=== PATIENT | female | born 1960 | race Caucasian/White ===

== ENCOUNTER 2016-02-26 08:51 | Emergency (ER) | payer SELFPAY ==
[~2016-02-26] VITALS: Ht 162.6 cm; Wt 90.7 kg
[~2016-02-26 08:51] MED LIST: ACHD5005 PO; AZIT250T PO; AZIT500T PO; DEXT1TAB3 PO; ESCI20TA2 PO; GUAI600T59 PO; HYOS0.1216 PO; LVT.1T PO; METH4TAB PO; METO25TA2 PO; MTF500T PO; ONDA-42 SL; OXYC-12 PO; OXYC-272 PO; PRD10T PO; PRD20T PO; PRX10T PO; RT-ALBUINH IH; SUCR1TAB PO; VALS1TAB4 PO
--- OUTSIDE RECORDS SUMMARY | 2016-02-26 08:57 | XMS REPORT | Continuity of Care Document ---
Author Author [facility] Organization [facility] Address Unknown Phone Unavailable Care Team Providers Care Field Marketing Representative Name Role Phone MANUEL CLAY MD PCP Insurance Providers Payer Name Policy Number Subscriber Name Relationship Enter Insurance Name [id number] Patt Interiano Self / Same As Patient Advance Directives Directive Response Recorded Date/Time Advance Directives No 03/24/14 11:01am Health Care Power of Clay Burner No 03/24/14 11:01am Organ Donor Yes 03/24/14 11:01am Resuscitation Status Full Code 03/24/14 11:01am Problems Medical Problems Problem Onset Date Status Sciatica Unknown Active Sciatica Unknown Active Diarrhea Unknown Active Nausea and vomiting Unknown Active Diarrhea Unknown Active Medications Medication Dose Route Sig Days/Qty Instructions Order Date Discontinued Date Status Escitalopram Oxalate 1 Each PO DAILY 04/02/10 01/28/11 Discontinued HCTZ/Valsartan 1 Each PO DAILY 04/02/10 01/28/11 Discontinued Metformin HCl (Glucophage) 1 Each PO TWICE A DAY WITH MEALS 04/02/10 06/05/13 Discontinued Levothyroxine Sodium (Levothroid) 2 Each PO DAILY 04/02/10 Active Metoprolol Tartrate (Lopressor) 1 Tab PO DAILY 01/28/11 Active Azithromycin 500 Mg PO DAILY 03/26/11 06/05/13 Discontinued Prednisone 20 Mg PO TWICE A DAY 03/26/11 03/26/11 Discontinued Prednisone 10 Mg PO DAILY 03/26/11 03/26/11 Discontinued Prednisone 10 Mg PO DAILY 03/26/11 03/26/11 Discontinued Prednisone 10 Mg PO TWICE A DAY 03/26/11 06/05/13 Discontinued Oxycodone Hcl/Acetaminophen 1-2 Each PO EVERY 6 HOURS PRN PAIN 24 Qty 06/05/13 02/07/14 Discontinued Acetaminophen/Hydrocodone Bitart 1 Each PO EVERY 6 HOURS For PAIN 0 Qty 06/06/13 02/07/14 Discontinued Paroxetine HCl 1 Tab PO DAILY 30 Qty 06/06/13 Active Oxycodone Hcl/Acetaminophen 1 Tab PO EVERY 4HRS PRN PAIN 60 Qty 02/07/14 Discontinued Oxycodone Hcl/Acetaminophen 1-2 Each PO Q4-6H PRN 20 Qty 02/07/1408/29 Discontinued Methylprednisolone 1 Pkt PO DIRECTED 1 Qty 02/07/14 03/24/14 Discontinued Hyoscyamine Sulfate 1-2 Each PO Q4HR PRN PRN CRAMPS 10 Qty 03/24/14 Active Ondansetron Hcl 4 Mg SL EVERY 4HRS 10 Qty FOR NAUSEA AND VOMITING Active Sucralfate 1 G PO FOUR TIMES DAILY 28 Qty 03/24/14 Active Social History Social History Problem Response Recorded Date/Time Alcohol Use Denies Use 03/24/2014 11:01am Recreational Drug Use No 03/24/2014 11:01am Recent Foreign Travel No 03/24/2014 10:58am Recent Infectious Disease Exposure No 03/24/2014 10:58am Sexually Transmitted Disease No 03/24/2014 11:01am Smoking Status Current Everyday Smoker 03/24/2014 11:01am Query Response Start Date Stop Date Smoking Status Current Everyday Smoker Hospital Discharge Instructions No hospital discharge instructions. Plan of Care No plan of care. Functional Status No functional status results. Allergies, Adverse Reactions, Alerts Allergen Type Severity Reaction Status Last Updated morphine Allergy Unknown itch Active 06/06/13 Codeine Allergy Unknown itch Active 06/06/13 hydrocodone ([id number]) Allergy Unknown itch Active 06/06/13 Immunizations Name Given Type Date of Pneumonia Vaccine 11/16/11 Historical Date of Influenza Vaccine 03/25/11 Historical Vital Signs Acute Vital Signs Vital Response Date/Time Temperature (Fahrenheit) 97.6 degrees F (97.6 - 99.5) Temperature (Calculated Celsius) 36.32755 degrees C (36.4 - 37.5) Temperature Source Temporal Pulse Rate (adult) 89 bpm (60 - 90) Respiratory Rate 20 bpm (12 - 24) O2 Sat by Pulse Oximetry 95 % (88 - 100) Blood Pressure 165/106 mm Hg Pain Pain Intensity 1 Height (Feet) 5 feet Height (Inches) 4 inches Height (Calculated Centimeters) 162.974793 cm Weight (Pounds) 201 pounds Weight (Calculated Grams) 94205.067 gm Weight (Calculated Kilograms) 91.051145 kilograms Calculated BMI 34.50 Results Laboratory Results Test Name Result Units Flags Reference Collection Date/Time Result Date/ Time Comments White Blood Count 7.5 10^3/uL 4.3-11.0 03/24/2014 11:00am 03/24/2014 11 :16am Red Blood Count 5.63 10^6/uL 4.35-5.85 03/24/2014 11:00am 03/24/2014 11 :16am Hemoglobin 17.3 G/DL H 11.5-16.0 03/24/2014 11:00am 03/24/2014 11:16am Hematocrit 49 % 35-52 03/24/2014 11:00am 03/24/2014 11:16am Mean Corpuscular Volume 88 FL 80-99 03/24/2014 11:00am 03/24/2014 11: 16am Mean Corpuscular Hemoglobin 31 PG 25-34 03/24/2014 11:00am 03/24/2014 11:16am Mean Corpuscular Hemoglobin Concent 35 G/DL 32-36 03/24/2014 11:00am 11:16am Red Cell Distribution Width 13.2 % 10.0-14.5 03/24/2014 11:00am 2014 11:16am Platelet Count 213 10^3/uL 130-400 03/24/2014 11:00am 03/24/2014 11: 16am Mean Platelet Volume 10.2 FL 7.4-10.4 03/24/2014 11:00am 03/24/2014 11: 16am Neutrophils (%) (Auto) 62 % 42-75 03/24/2014 11:00am 03/24/2014 11: 16am Lymphocytes (%) (Auto) 23 % 12-44 03/24/2014 11:00am 03/24/2014 11: 16am Monocytes (%) (Auto) 12 % 0-12 03/24/2014 11:00am 03/24/2014 11:16am Eosinophils (%) (Auto) 2 % 0-10 03/24/2014 11:00am 03/24/2014 11:16am Basophils (%) (Auto) 1 % 0-10 03/24/2014 11:00am 03/24/2014 11:16am Neutrophils # (Auto) 4.7 X 10^3 1.8-7.8 03/24/2014 11:00am 03/24/2014 11:16am Lymphocytes # (Auto) 1.8 X 10^3 1.0-4.0 03/24/2014 11:00am 03/24/2014 11:16am Monocytes # (Auto) 0.9 X 10^3 0.0-1.0 03/24/2014 11:00am 03/24/2014 11: 16am Eosinophils # (Auto) 0.2 10^3/uL 0.0-0.3 03/24/2014 11:00am 03/24/2014 11:16am Basophils # (Auto) 0.0 10^3/uL 0.0-0.1 03/24/2014 11:00am 03/24/2014 11 :16am Urine Color YELLOW 03/24/2014 10:58am 03/24/2014 11:26am Urine Clarity SLIGHTLY CLOUDY 03/24/2014 10:58am 03/24/2014 11: 26am Urine pH 6 5-9 03/24/2014 10:58am 03/24/2014 11:26am Urine Specific [place] 1.020 1.016-1.022 03/24/2014 10:58am 2014 11:26am Urine Protein 2+ * NEGATIVE 03/24/2014 10:58am 03/24/2014 11:26am Urine Glucose (UA) NEGATIVE NEGATIVE 03/24/2014 10:58am 03/24/2014 11 :26am Urine RBC (Auto) 1+ * NEGATIVE 03/24/2014 10:58am 03/24/2014 11:26am Urine Ketones NEGATIVE NEGATIVE 03/24/2014 10:58am 03/24/2014 11: 26am Urine Nitrite NEGATIVE NEGATIVE 03/24/2014 10:58am 03/24/2014 11: 26am Urine Bilirubin 1+ * NEGATIVE 03/24/2014 10:58am 03/24/2014 11:26am ICTO TEST=NEG Urine Urobilinogen 1 MG/DL NORMAL 03/24/2014 10:58am 03/24/2014 11: 26am Urine Leukocyte Esterase NEGATIVE NEGATIVE 03/24/2014 10:58am 2014 11:26am Urine RBC RARE /HPF 03/24/2014 10:58am 03/24/2014 11:26am MICROSCOPIC EXAM DONE ON 5ML SPEC. Urine WBC RARE /HPF 03/24/2014 10:58am 03/24/2014 11:26am Urine Bacteria TRACE /HPF 03/24/2014 10:58am 03/24/2014 11:26am Urine Squamous Epithelial Cells TNTC /HPF * 03/24/2014 10:58am 2014 11:26am Urine Crystals NONE /LPF 03/24/2014 10:58am 03/24/2014 11:26am Urine Casts NONE /LPF 03/24/2014 10:58am 03/24/2014 11:26am Urine Mucus NEGATIVE /LPF 03/24/2014 10:58am 03/24/2014 11:26am Urine Culture Indicated NO 03/24/2014 10:58am 03/24/2014 11:26am Sodium Level 137 MMOL/L 135-145 03/24/2014 11:00am 03/24/2014 11:29am Potassium Level 3.9 MMOL/L 3.6-5.0 03/24/2014 11:00am 03/24/2014 11: 29am Chloride Level 108 MMOL/L H 98-107 03/24/2014 11:00am 03/24/2014 11:29am Carbon Dioxide Level 20 MMOL/L L 21-32 03/24/2014 11:00am 03/24/2014 11: 29am Blood Urea Nitrogen 12 MG/DL 7-18 03/24/2014 11:00am 03/24/2014 11: 29am Creatinine 0.93 MG/DL 0.60-1.30 03/24/2014 11:00am 03/24/2014 11:29am BUN/Creatinine Ratio 13 03/24/2014 11:00am 03/24/2014 11:29am Estimat Glomerular Filtration Rate > 60 03/24/2014 11:00am 2014 11:29am GFR INTERPRETIVE DATA UNITS FOR ESTIMATED GFR (eGFR): mL/min/1.73 M2 REFERENCE RANGE FOR ESTIMATED GFR (eGFR) eGFR NORMAL eGFR >60 MODERATELY DECREASED eGFR 30-59 SEVERLY DECREASED eGFR 15-29 KIDNEY FAILURE <15 (OR DIALYSIS) Glucose Level 113 MG/DL H 70-105 03/24/2014 11:00am 03/24/2014 11:29am Calcium Level 9.4 MG/DL 8.5-10.1 03/24/2014 11:00am 03/24/2014 11:29am Total Bilirubin 0.4 MG/DL 0.1-1.0 03/24/2014 11:00am 03/24/2014 11: 29am Alkaline Phosphatase 110 U/L 40-136 03/24/2014 11:00am 03/24/2014 11: 29am Aspartate Amino Transf (AST/SGOT) 40 U/L H 5-34 03/24/2014 11:00am 2014 11:29am Alanine Aminotransferase (ALT/SGPT) 42 U/L 0-55 03/24/2014 11:00am 08/2014 11:29am Total Protein 7.9 G/DL 6.4-8.2 03/24/2014 11:00am 03/24/2014 11:29am Albumin 4.7 G/DL H 3.2-4.5 03/24/2014 11:00am 03/24/2014 11:29am Lipase 27 U/L 8-78 03/24/2014 11:00am 03/24/2014 11:29am Procedures No known history of procedures. Encounters Encounter Location Date/Time Departed Emergency Room Via [facility] 03/24/14 10:46am Recent Diagnosis
[2016-02-26] MEDS ORDERED: LOVA10TA (09:20)
[2016-02-26] MEDS ORDERED: METO-351 (09:20)
[2016-02-26] MEDS ORDERED: LISI2.5T (09:20)
[2016-02-26] MEDS ORDERED: FLUO10CA19 (09:20)
[2016-02-26] MEDS ORDERED: OMEP20CA12 (09:20)
--- NOTE | 2016-02-26 09:42 | Diagnostic Imaging Report ---
Clinical indication: Patient with coughing up blood this morning. Patient's a long-time smoker. Exam: Chest x-ray PA and lateral views. Comparisons: Chest x-ray dated 04/04/2015. Findings: Lungs/pleura: Stable mild left basilar atelectasis or scarring. Otherwise, lungs are clear. There is no pneumothorax. There is no pleural effusion. Mediastinum: Unremarkable. Pulmonary vasculature: Unremarkable. Heart: Unremarkable. Bones/extrathoracic soft tissue: There are small degenerative osteophytes scattered throughout the thoracic spine. Impression: Stable mild left basilar atelectasis or scarring. Otherwise, there is no radiographic evidence of acute cardiopulmonary process. Dictated by: Dictated on workstation # [id number]
[2016-02-26] MEDS ORDERED: PRD20T PO (09:56)
[2016-02-26] MEDS ORDERED: RT-ALBUINH IH (09:56)
[2016-02-26] MEDS ORDERED: AZIT250T PO (09:56)
--- NOTE | 2016-02-26 09:58 | ED Cough/URI ---
General Chief Complaint: Coughing up blood Stated Complaint: COUGHING UP BLOOD Nursing Triage Note: AMBULATED TO ROOM 05 WITHOUT DIFFICULTY. STATES SHE COUGHED UP BLOOD TWICE TODAY AND ONCE IT LOOKED LIKE A BLOOD CLOT. STATES SHE HAS SMOKED SINCE SHE WAS 16. Source: patient Exam Limitations: no limitations History of Present Illness Time seen by provider: 09:53 Initial Comments Patient had some blood speckled in her morning cough this morning. Then she coughed up a large amount of blood. Symptoms have resolved. She complains of fatigue and a little more dyspnea than usual. Patient smokes one and a half packs per day. No weight loss. No fever. Allergies and Home Medications Allergies Coded Allergies: codeine (Unverified Allergy, Unknown, itch, 06/06/13) hydrocodone (Unverified Allergy, Unknown, itch, 06/06/13) morphine (Unverified Allergy, Unknown, itch, 06/06/13) Home Medications Fluoxetine HCl 10 Mg Capsule #30 (Reported) Levothyroxine Sodium 100 Mcg Tablet 2 EACH PO DAILY (Reported) Lisinopril 2.5 Mg Tablet #30 (Reported) Lovastatin 10 Mg Tablet #30 (Reported) Metoprolol Succinate 25 Mg Tab.er.24h #30 (Reported) Metoprolol Tartrate 25 Mg Tablet 1 TAB PO DAILY (Reported) Omeprazole 20 Mg Capsule.dr #90 (Reported) Constitutional: No fever, malaise weakness Respiratory: cough hemoptysis wheezing Cardiovascular: no symptoms reported Musculoskeletal: no symptoms reported All Other Systems Reviewed Negative Unless Noted: Yes Past Iqdftxa-Yedplu-Vwgbka Hx Patient Social History Alcohol Use: Denies Use Recreational Drug Use: No Smoking Status: Current Everyday Smoker Type Used: Cigarettes Recent Foreign Travel: No Contact w/Someone Who Travel: No Recent Infectious Disease Expo: No Recent Hopitalizations: No Physical Abuse Screen: No Sexual Abuse: No Immunizations Up To Date Date of Pneumonia Vaccine: Nov 16, 2011 Date of Influenza Vaccine: Mar 25, 2011 Seasonal Allergies Seasonal Allergies: Yes Surgeries HX Surgeries: Yes (spinal fusion,ovarian tumor removed 2010,SKIN CA REMOVED( FACE),CTR ) Surgeries: Appendectomy, Hysterectomy, Thyroidectomy, Tubal Ligation Respiratory Hx Respiratory Disorders: Yes Respiratory Disorders: COPD Cardiovascular Hx Cardiac Disorders: Yes Cardiac Disorders: Hypertension Neurological Hx Neurological Disorders: No Reproductive System Hx Reproductive Disorders: Yes (had tumor removed from remaining ovary) Sexually Transmitted Disease: No 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 Genitourinary Hx Genitourinary Disorders: No Gastrointestinal Hx Gastrointestinal Disorders: No Gastrointestinal Disorders: Gastroesophageal Reflux Musculoskeletal Hx Musculoskeletal Disorders: No Endocrine Hx Endocrine Disorders: Yes (DIET CONTROLLED DIABETES) Endocrine Disorders: Hypothyroidsim HEENT HX ENT Disorders: No Cancer Hx Cancer: Yes Cancer: Melanoma Psychosocial Hx Psychiatric Problems: No Integumentary HX Skin/Integumentary Disorder: No Blood Transfusions Hx Blood Disorders: No Reviewed Nursing Assessment Reviewed/Agree w Nursing PMH: Yes Physical Exam Vital Signs Vital Sign - Last 12Hours 02/26/16 09:12 Temp 97.6 Pulse 93 Resp 18 B/P 151/96 Pulse Ox 96 Capillary Refill : Less Than 3 Seconds General Appearance: WD/WN no apparent distress Eyes: Bilateral Eye EOMI, Bilateral Eye PERRL HEENT: pharynx normal Neck: supple Respiratory: lungs clear normal breath sounds decreased breath sounds Cardiovascular: regular rate, rhythm no edema Gastrointestinal: soft Extremities: normal inspection Neurologic/Psychiatric: alert normal mood/affect Skin: normal color warm/dry Progress/Results/Core Measures Results/Orders My Orders Orders-ROB WINSLOW MD Chest Pa/Lat (2 View) (02/26/16 08:58) Vital Signs/I&O Vital Sign - Last 12Hours 02/26/16 09:12 Temp 97.6 Pulse 93 Resp 18 B/P 151/96 Pulse Ox 96 Blood Pressure Mean: 114 Diagnostic Imaging Comments Date of Exam:02/26/16 CHEST PA/LAT (2 VIEW) Clinical indication: Patient with coughing up blood this morning. Patient's a long-time smoker. Exam: Chest x-ray PA and lateral views. Comparisons: Chest x-ray dated 04/04/2015. Findings: Lungs/pleura: Stable mild left basilar atelectasis or scarring. Otherwise, lungs are clear. There is no pneumothorax. There is no pleural effusion. Mediastinum: Unremarkable. Pulmonary vasculature: Unremarkable. Heart: Unremarkable. Bones/extrathoracic soft tissue: There are small degenerative osteophytes scattered throughout the thoracic spine. Impression: Stable mild left basilar atelectasis or scarring. Otherwise, there is no radiographic evidence of acute cardiopulmonary process. Departure Impression Impression: Primary Impression: COPD with acute bronchitis Additional Impression: Hemoptysis Disposition: 01 HOME, SELF-CARE Condition: Stable Departure-Patient Inst. Decision time for Depature: 09:54 Referrals: [facility] (PCP/Family) Primary Care Physician Patient Instructions: Acute Hemoptysis (ED) Add. Discharge Instructions: See her doctor if hemoptysis does not resolve. Take antibiotics steroids and breathing treatments as prescribed. All discharge instructions reviewed with patient and/or family. Voiced understanding. Scripts Azithromycin (Zithromax)250 Mg [id number] Mg PO UD #6 TAB TAKE 2 TABLETS TODAY, THEN TAKE 1 TABLET DAILY FOR 4 MORE DAYS Prov:ROB WINSLOW MD 02/26/16 Albuterol Sulfate (Proair Hfa)8.5 Gm Hfa.aer.ad1-2 Puff IH Q4H PRN COUGH #1 INH Prov:ROB WINSLOW MD 02/26/16 Prednisone 20 Mg Tab20 Mg PO BID #8 TAB Prov:ROB WINSLOW MD 02/26/16 ROB WINSLOW MD Feb 26, 2016 09:58
[2016-02-26 10:07] VITALS: BP 143/84
== END 2016-02-26 10:07 | disposition home or self-care (01) ==
LOC: EDUNIT# 08:51 → ER 08:52
DX: J44.0 Chronic obstructive pulmonary disease with (acute) lower respiratory infection (principal); R04.2 Hemoptysis; F17.210 Nicotine dependence, cigarettes, uncomplicated
CPT/HCPCS: 71020

== ENCOUNTER → 2016-07-03 | Outpatient (CLI) | payer BC ==
[~2016-07-03] MED LIST changes: +FLUO10CA19; +LISI2.5T; +LOVA10TA; +METO-351; +OMEP20CA12
--- NOTE | 2016-07-03 15:36 | Diagnostic Imaging Report ---
PROCEDURE: CT chest without contrast. TECHNIQUE: Multiple contiguous axial images were obtained through the chest without the use of intravenous contrast. INDICATION: A 40-year history of smoking. Hemoptysis. FINDINGS: The lungs are well aerated. No air trapping is demonstrated. No significant interstitial disease is present. No evidence of cystic bullous emphysematous changes or bronchiectasis. Minimal atelectasis noted within the right middle lobe and lingula without associated bronchiectasis. The aorta shows mild atherosclerotic disease without evidence of aneurysm. No mediastinal or hilar adenopathy of pathologic size. No pleural effusions or pericardial effusions. Bone windows show no blastic or lytic lesions. IMPRESSION: 1. No findings are seen to suggest bronchogenic carcinoma. 2. Minimal atelectasis noted within the lingula and right middle lobe. No associated bronchiectasis. Dictated by: Dictated on workstation # [id number]
== END ==
LOC: RAD 15:10
PROVIDERS: ATTEND Nurse Practitioner Family
DX: R04.2 Hemoptysis (principal); J98.11 Atelectasis; Z87.09 Personal history of other diseases of the respiratory system; Z72.0 Tobacco use
CPT/HCPCS: 71250

== ENCOUNTER → 2020-02-28 | Outpatient (CLI) | payer OTHER ==
[~2020-02-28] MED LIST changes: -FLUO10CA19; +FLUO10CA31; -GUAI600T59 PO; +GUAI600T86 PO; -OMEP20CA12; +OMEP20CA18; +RT-ALBUTEROL SULF 2.5 MG/3 ML PRE-MIX VIAL INH ONE
== END ==
LOC: RT 13:00
PROVIDERS: ATTEND Nurse Practitioner Family
DX: J44.9 Chronic obstructive pulmonary disease, unspecified (principal)
CPT/HCPCS: 94060; 94726; 94729

== ENCOUNTER → 2020-04-26 | Outpatient (CLI) | payer OTHER ==
[~2020-04-26] MED LIST changes: -RT-ALBUTEROL SULF 2.5 MG/3 ML PRE-MIX VIAL INH ONE
== END ==
LOC: CARD 13:31
PROVIDERS: ATTEND Internal Medicine Cardiovascular Disease
DX: I73.9 Peripheral vascular disease, unspecified (principal); I10 Essential (primary) hypertension; E78.2 Mixed hyperlipidemia
CPT/HCPCS: 93306